=== PATIENT | male | born 1950 | race Caucasian/White ===

== ENCOUNTER → 2017-06-29 | Day surgery (SDC) | payer BC ==
[2017-06-22 12:34] VITALS: Ht 182.9 cm; Wt 78.2 kg
[2017-06-27 13:04] LABS: BASO % 0.2 %; BASO ABS # 0.01 K/uL (0-0.2); COMPLETE YES; EOS % 1.7 %; HEMATOCRIT 39.2 % (42-52); IG% 0.2 %; LYMPH % 26.1 %; LYMPH ABS # 1.39 K/uL (1.2-3.4); MEAN CELL VOLUME 92.5 fL (80-100); MEAN CORPUSCULAR HEMOGLOBIN 31.1 pg (25-34); MEAN CORPUSCULAR HGB CONC 33.7 g/dl (32-36); MEAN PLATELET VOLUME 10.3 fL (7.4-10.4); MONO % 5.8 %; PLATELET COUNT 170 K/uL (130-400); RED BLOOD COUNT 4.24 M/uL (4.7-6.1); WHITE BLOOD COUNT 5.32 K/uL (4.8-10.8)
[2017-06-27 13:21] LABS: POTASSIUM 4.3 mmol/L (3.5-5.1)
[~2017-06-29] VITALS: Ht 182.9 cm; Wt 78.2 kg
[~2017-06-29] MED LIST: ACET-749 PO; ACETAMINOPHEN/CODEINE 300/30MG TAB PO PRN; ASPI325T39 PO; ATOR-22 PO; ATROPINE SULFATE 0.1 MG/ML 5ML SYR IV PRN; BUPIVACAINE 0.5 % 5 MG/1 ML MPF 30ML VIAL ONE; CEFAZOLIN SOD 1000MG/5 ML IV PUSH IV ONE; CEFAZOLIN SOD 2000MG/10 ML IV PUSH IV ONE; DEXAMETHASONE SOD INJ 4 MG/ML VIAL ONE; EpHEDrine SULFATE 50MG/5ML SYR ONE; EpHEDrine SULFATE INJ 50 MG/ML AMP IV PRN; FENTANYL CITRATE INJ 50 MCG/1 ML 2 ML VIAL IV PRN; FENTANYL CITRATE INJ 50 MCG/1 ML 2 ML VIAL ONE; LACTATED RINGER'S 1000ML 1,000 ML IV SCH; LIDOCAINE HCL 2% 2 ML VIAL (20MG/ML) ONE; LIDOCAINE HCL 2% LOCAL 20 ML VIAL ONE; MIDAZOLAM HCL 1 MG/ML 2ML VIAL ONE; MULT-506 PO; NURSING VERBAL MED ORDER ONE; OMEG10007 PO; ONDANSETRON INJ 2 MG/ML 2 ML VIAL IV PRN; ONDANSETRON INJ 2 MG/ML 2 ML VIAL ONE; PROPOFOL IV EMULSION 10 MG/ML 20 ML VIAL IV ONE; PSYL48.59 PO; SILD100T PO; SODIUM CHLORIDE 0.9% 1000ML 1,000 ML IV SCH
--- NOTE | 2017-06-29 11:49 | History & Physical Bridge - [place] ---
H&P Re-Evaluation Bridge Note: I have examined the patient, reviewed the History & Physical and in the interval since the performance of the History & Physical I have noted the following changes of clinical significance: No changes noted
--- NOTE | 2017-06-29 13:19 | [facility] Post Operative Brief Note ---
Immediate Operative Summary Operative Date Jun 29, 2017. Pre-Operative Diagnosis Right Small Finger Flexion Contracture Post-Operative Diagnosis Same Procedure(s) Performed Right Small Finger Osteotomy And Straightening Surgeon Dr. Hahn Roll Setter Surgeon(s) Taty Thornton PA-C Estimated Blood Loss Minimal Findings Flexion contracture small finger Specimens None Anesthesia General Complication(s) None Disposition Recovery Room / PACU
--- NOTE | 2017-06-29 13:19 | Discharge Instructions-SurgCtr ---
Discharge Instructions Date of Service Jun 29, 2017. Visit Reason for Visit: Right Small Finger Flexion Contracture;Pre-Op Discharge Discharge Diagnosis / Problem: right small finger flexion contracture Discharge Goals Goal(s): Decrease discomfort, Therapeutic intervention Activity Recommendations Activity Limitations: per Instructions/Follow-up section Anesthesia . Post Anesthesia Instructions: If you have had General Anesthesia or IV Sedation: * Do not drive today. * Resume driving when surgeon permits. * Do not make important decisions or sign legal documents today. * Call surgeon for: 1. Temperature elevations greater than 101 degrees F. 2. Uncontrollable pain. 3. Excessive bleeding. 4. Persistent nausea and vomiting. 5. Medication intolerance (nausea, vomiting or rash). * For nausea and vomiting use only clear liquids such as: tea, soda, bouillon until nausea subsides, then gradually increase diet as tolerated. * If you have any concerns or questions, call your surgeon's office. If physician is unavailable and it is an emergency, call 911 or go to the nearest emergency room. . Instructions / Follow-Up Instructions / Follow-Up MEDICATIONS: * Resume previous medications unless instructed otherwise by your surgeon. * Always take pain medication on a full stomach or with food to avoid upset stomach. * Do not drink alcohol or drive while taking narcotics. * Ibuprofen or Tylenol may be taken if narcotic not needed. SPECIAL CARE INSTRUCTIONS: __ None _x_ Keep extremity elevated and iced x 48 hours; apply ice 20-30 minutes 8-10 times/day. May remove at night. _x_ Sling __24 hrs/day __ Remove at night __ Shoulder Immobilizer __ 24 hrs/day __ Remove at night _x_ Dressing _x_ Maintain until seen in office, may shower with plastic over site __ Remove dressings in 24-48 hours and then may shower __ Cover incisions with band-aids after showering __ Do not remove steri-strips Call physician if chills or temperature rises above 102 degrees or pain unrelieved by prescribed pain medications at . . follow up in 2 weeks Diet Recommendations Home Diet: resume previous diet Procedures Procedures Performed: Right Small Finger Osteotomy And Straightening Pending Studies Studies pending at discharge: no Medical Emergencies . Who to Call and When: Medical Emergencies: If at any time you feel your situation is an emergency, please call 911 immediately. . Non-Emergent Contact Non-Emergency issues call your: Surgeon . . "Provider Documentation" section prepared by Juan Thornton. .
--- NOTE | 2017-06-29 13:54 | Anesthesiology Progress Note ---
Anesthesia Post Op Note Date & Time Jun 29, 2017 at 13:53 Vital Signs Pain Intensity: 3 Vital Signs Past 12 Hours Date Time Temp Pulse Resp B/P (MAP) Pulse Ox O2 Delivery O2 Flow Rate FiO2 06/29/17 13:46 69 18 134/80 99 06/29/17 13:46 68 18 06/29/17 13:46 68 18 06/29/17 13:46 69 18 134/80 99 06/29/17 13:41 68 16 144/79 100 06/29/17 13:41 68 16 144/79 100 06/29/17 13:41 69 16 06/29/17 13:41 69 16 06/29/17 13:36 65 15 131/79 100 06/29/17 13:36 65 15 131/79 100 06/29/17 13:36 65 15 06/29/17 13:36 65 15 06/29/17 13:31 67 13 138/72 100 06/29/17 13:31 66 13 06/29/17 13:31 66 13 06/29/17 13:31 67 13 138/72 100 06/29/17 13:26 63 17 140/68 100 06/29/17 13:26 62 17 06/29/17 13:26 62 17 06/29/17 13:26 63 17 140/68 100 06/29/17 13:21 63 15 06/29/17 13:21 63 15 06/29/17 13:21 64 15 130/66 99 06/29/17 13:21 64 15 130/66 99 06/29/17 13:17 133/72 06/29/17 13:17 133/72 06/29/17 13:16 36.5 65 12 133/72 99 Diffusion Mask 6 06/29/17 10:17 36.5 58 22 123/77 (92) 98 Room Air Notes Mental Status: alert / awake / arousable, participated in evaluation Pt Amnestic to Procedure: Yes Nausea / Vomiting: adequately controlled Pain: adequately controlled Airway Patency, RR, SpO2: stable & adequate BP & HR: stable & adequate Hydration State: stable & adequate Anesthetic Complications: no major complications apparent
[2017-06-29 13:58] VITALS: TEMP 36.1
[2017-06-29 14:35] VITALS: BP 128/75; PULSE 62; O2SAT 98
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
== END | disposition home or self-care (01) ==
LOC: X.SURG 10:04
PROVIDERS: ATTEND Orthopaedic Surgery Sports Medicine
DX: M20.001 Unspecified deformity of right finger(s) (principal); M24.541 Contracture, right hand; M25.641 Stiffness of right hand, not elsewhere classified; E78.5 Hyperlipidemia, unspecified; Z90.89 Acquired absence of other organs; Z98.890 Other specified postprocedural states; Z68.23 Body mass index [BMI] 23.0-23.9, adult; Z79.82 Long term (current) use of aspirin; Z79.899 Other long term (current) drug therapy